=== PATIENT | male | born 1980 | race African-American/Black ===

== ENCOUNTER 2021-09-05 11:30 | Emergency (ER) | payer MEDICAID ==
[~2021-09-05] VITALS: Ht 190.5 cm; Wt 97.7 kg
[2021-09-05] MEDS ORDERED: OxyCODONE HCL/ACETAMINOPHEN 5-325 MG TABLET PO ONE (13:15)
[2021-09-05] MEDS ORDERED: IBUP-2070 PO (17:52)
[2021-09-05] MEDS ORDERED: ACET-66 PO (17:52)
[2021-09-05 18:04] VITALS: BP 117/68
[2021-09-05] MEDS ORDERED: IBUP-1554 PO (18:27)
[2021-09-05] MEDS ORDERED: ACET-2080 PO (18:27)
== END 2021-09-05 18:45 | disposition home or self-care (01) ==
LOC: EMS 11:30
DX: S92.242A Displaced fracture of medial cuneiform of left foot, initial encounter for closed fracture (principal); S86.012A Strain of left Achilles tendon, initial encounter; F12.90 Cannabis use, unspecified, uncomplicated; W22.8XXA Striking against or struck by other objects, initial encounter; Y93.67 Activity, basketball; Y92.89 Other specified places as the place of occurrence of the external cause; Y99.8 Other external cause status
CPT/HCPCS: 29515; 73700; 76881; 99284